=== PATIENT | female | born 1955 | race Caucasian/White ===

== ENCOUNTER 2019-01-04 03:16 | Inpatient (IN) ==
--- NOTE | 2019-01-01 14:21 | EKG Report ---
Test Performed on : 01/01/2019 2:12:42 PM Test Reason : PAT Blood Pressure : / mmHG Vent. Rate : 067 BPM Atrial Rate : 067 BPM P-R Int : 192 ms QRS Dur : 084 ms QT Int : 412 ms P-R-T Axes : 052 061 052 degrees QTc Int : 435 ms Normal sinus rhythm. Normal ECG No previous ECGs available Unconfirmed Result
[2019-01-01 14:35] LABS: HEMATOCRIT 38.9 % (37.0-47.0); HEMOGLOBIN 12.8 g/dL (12.0-16.0); MCH 31.4 PG (27-31); MCHC 32.9 g/dL (33-37); MCV 95.6 FL (81-99); MPV 10.5 FL (7.4-10.4); RBC 4.07 XMIL (4.2-5.4); RDW 12.4 % (11.5-14.5); WBC 6.48 X1000 (4.8-10.8)
[2019-01-01 15:05] LABS: AGAP 14; BUN 12 mg/dL (8-22); CALCIUM 9.5 mg/dL (8.8-10.2); CHLORIDE 101 mmol/L (98-107); COSMO 286; CREATININE 0.9 mg/dL (0.5-0.9); ESTIMATED GFR > 60; GLUCOSE 118 mg/dL (70-104); SODIUM 143 mmol/L (136-145); TCO2 28 mmol/L (25-35)
[2019-01-04] MEDS ORDERED: FENTANYL ONE (06:26)
[2019-01-04] MEDS ORDERED: DIPRIVAN 1% ONE (06:26)
[2019-01-04] MEDS ORDERED: XYLOCAINE-MPF 2% ONE (06:27)
[2019-01-04] MEDS ORDERED: ZOFRAN ONE (06:27)
[2019-01-04] MEDS ORDERED: ROBINUL ONE ×2 (06:27→12:09)
[2019-01-04] MEDS ORDERED: DECADRON ONE (06:27)
[2019-01-04] MEDS ORDERED: ZEMURON ONE (06:27)
[2019-01-04] MEDS ORDERED: LUBRIFRESH PM OPH OINTMENT ONE (06:28)
[2019-01-04] MEDS ORDERED: VERSED ONE (06:30)
[2019-01-04] MEDS ORDERED: REGLAN ONE (06:32)
[2019-01-04] MEDS ORDERED: PEPCID ONE (06:32)
[2019-01-04] MEDS ORDERED: TRANSDERM-SCOP ONE (06:32)
[2019-01-04] MEDS ORDERED: VALIUM ONE (06:32)
[2019-01-04] MEDS ORDERED: LR 1,000 ML ONE ×2 (06:33→13:24)
[2019-01-04] MEDS ORDERED: CLINDAMYCIN 900 MG/D5W 900 MG/50 ML IVPB ONE (06:33)
[2019-01-04] MEDS ORDERED: XYLOCAINE 1%/EPI 1:100,000 ONE (06:40)
[2019-01-04] MEDS ORDERED: BSS OPHTH SOLN ONE (06:40)
[2019-01-04] MEDS ORDERED: CLINDAMYCIN ONE (06:40)
[2019-01-04] MEDS ORDERED: BACTROBAN OINTMENT ONE (06:40)
[2019-01-04] MEDS ORDERED: EPHEDRINE ONE (07:47)
[2019-01-04] MEDS ORDERED: ALBUMIN 25% ONE (07:49)
[2019-01-04] MEDS ORDERED: NORCURON ONE (08:13)
[2019-01-04] MEDS ORDERED: SODIUM CHLORIDE INJ ONE (09:00)
[2019-01-04] MEDS ORDERED: LIDOCAINE INJ ONE (09:00)
[2019-01-04] MEDS ORDERED: EPINEPHRINE INJ ONE (09:00)
[2019-01-04] MEDS ORDERED: SODIUM BICARBONATE INJ ONE (09:00)
[2019-01-04] MEDS ORDERED: NEOSTIGMINE ONE (12:10)
[2019-01-04] MEDS ORDERED: BREVIBLOC ONE (12:10)
[2019-01-04] MEDS ORDERED: BRIDION ONE (12:32)
[2019-01-04] MEDS ORDERED: DILAUDID IV PRN (14:53)
[2019-01-04] MEDS: PERCOCET-5 PO PRN ×3 (14:54→23:05)
[2019-01-04] MEDS ORDERED: APRESOLINE IV PRN (14:58)
[2019-01-04] MEDS ORDERED: LR 1,000 ML IV SCH (15:00)
[2019-01-04] MEDS ORDERED: PERCOCET-5 PO PRN (15:00)
[2019-01-04] MEDS: LEVAQUIN PO SCH (15:02)
[2019-01-04] MEDS: CLINDAMYCIN 600 MG/D5W 600 MG/50 ML IVPB IV SCH ×2 (16:04→23:05)
[2019-01-04] MEDS: DECADRON IV SCH ×2 (16:08→23:05)
[2019-01-04] MEDS: PHENERGAN IV PRN ×3 (17:16→23:04)
--- NOTE | 2019-01-04 19:47 | OPERATIVE NOTE ---
PROCEDURE DATE: 01/04/2019 PREOPERATIVE DIAGNOSIS: Facial rhytids. POSTOPERATIVE DIAGNOSIS: Facial rhytids. PROCEDURE: Facelift. COMPLICATIONS: None. ANESTHESIA: General with endotracheal intubation. FINDINGS: Moderate jowling bilaterally. DESCRIPTION OF PROCEDURE: Patient was identified, consented. Options were reviewed. She was brought to the operating room, placed in a supine position where general anesthesia was induced with endotracheal intubation. Face and scalp and neck were prepped and draped down to the shoulders in the usual sterile fashion using Betadine half-strength around the eyes, with Lacri- Lube and tape for protection, full strength Betadine elsewhere, and Hibiclens in the scalp area. She was prepped and draped in the usual sterile fashion. 1% lidocaine 1:100,000 was injected into the left periauricular incision. Tumescent lidocaine preparation was used in the subcutaneous plane. Left periauricular incision was created. Skin flap was elevated behind and in front of the ear. SMAS was identified, transected, and rotated, and plicated, and 2 vectors 60 degrees roughly was the angle of suspension. 3-0 Mersilene stitches were used in simple interrupted fashion, multiple on each vector, to hold to the zygoma and to the mastoid area. Skin was trimmed and the periauricular incision was repaired. Willard anterior, superior, and posterior inferior drains were used. The contralateral face was performed in similar fashion. She was dressed with a very mild pressure dressing and extubated, and transferred to the recovery room in stable condition. cc: Ld Peck MD
[2019-01-04] MEDS: PERIDEX MT SCH (20:15)
[2019-01-05] MEDS: PERCOCET-5 PO PRN ×2 (04:03→08:57)
[2019-01-05] MEDS: CLINDAMYCIN 600 MG/D5W 600 MG/50 ML IVPB IV SCH ×2 (05:51→07:11)
[2019-01-05] MEDS: PERIDEX MT SCH (08:57)
[2019-01-05] MEDS: LEVAQUIN PO SCH (08:58)
[2019-01-05] MEDS: DECADRON IV SCH (08:58)
[2019-01-05] MEDS ORDERED: LOZOL PO SCH (09:00)
[2019-01-05] MEDS ORDERED: TOPROL XL PO SCH (09:00)
[2019-01-05 13:26] VITALS: BP 118/68
== END 2019-01-05 14:00 | disposition home or self-care (01) | DRG 581 ==
LOC: SURHOLD 03:16 → 4N 14:42
PROVIDERS: ADMIT Otolaryngology Otolaryngology/Facial Plastic Surgery; ATTEND Otolaryngology Otolaryngology/Facial Plastic Surgery